=== PATIENT | female | born 1955 | race Caucasian/White ===

== ENCOUNTER → 2017-01-23 | Outpatient (CLI) | payer BC | LOC: RAD 11:20 | DX: Z12.31 Encounter for screening mammogram for malignant neoplasm of breast (principal) ==

== ENCOUNTER → 2017-01-30 | Outpatient (CLI) | payer BC | LOC: RAD 01-25 15:37 | DX: N63 Unspecified lump in breast (principal) ==

== ENCOUNTER → 2017-02-02 | Outpatient (CLI) | payer BC ==
--- NOTE | ~2017-02-02 | S ---
[facility] [place] [address] SURGICAL PATH RPT PROCEDURE Name: VAMSI ROMERO YULIA Room #: [facility] M.Cynthia.#: [id number] Admission: 02/02/17 Date of : 57 Discharge: Report #: [id number] Path Case #: [id number] PATHOLOGY REPORT COLLECTION DATE: 02/02/2017 RECEIVED DATE: 02/02/2017 SUBMITTING PHYS: Dr. Prabhu Jiménez OTHER PHYS: Dr. Kristel Tinoco SPECIMEN(S) RECEIVED: A.Right breast 10:00, 8 cm FN B.Right axilla * * * * * * * * * * * * FINAL DIAGNOSIS: A. "Right breast 10:00, 8 cm FN", image-guided needle biopsy: - Invasive ductal carcinoma, poorly-differentiated, Grade III, involving multiple cores, longest contiguous focus measuring 0.6 cm on the slide (see comment). B. "Right axilla", image-guided needle biopsy: - Lymph node with metastatic carcinoma, involving multiple cores, measuring at least 0.2 cm on the slide. COMMENT: Specimen type: Image-guided needle biopsy Tumor site: Right breast, 10:00, 8.0 cm FN Tumor quantitation: Involving multiple cores, longest contiguous focus measuring 0.6 cm on the slide Histologic type: Invasive ductal carcinoma Histologic grade: Grade III, poorly-differentiated Tubules, nuclei and mitoses: Tubule score - 3, nuclei score - 3, mitoses score - 3 LVSI: Indeterminate Microcalcifications: Not identified Markers: ER, GA, HER2 and Ki-67 Block: Pending on block A1. The case was co-reviewed with Dr. Kell Richard. The case was discussed with Lonnie in the [facility] on 02/05/17 at 3:10 PM. (CLW:marcello; 02/05/2017) PATHOLOGIST: Argentina Yi M.D. REPORT ELECTRONICALLY SIGNED BY: Argentina Yi M.D. DATE/TIME: 02/05/2017 22:43 * * * * * * * * * * * * [address] [address] SURGICAL PATH RPT PROCEDURE Name: VAMSI ROMERO YULIA Room #: [facility].#: [id number] Admission: 02/02/17 Date of : 57 Discharge: Report #: [id number] Path Case #: [id number] GROSS PATHOLOGY: A. Received in formalin labeled "Vamsi Romero, right breast 10:00, 8 cm," are multiple needle cores of yellow-oakes fibrofatty tissue measuring 2.3 x 1.3 x 0.3 cm in aggregate dimensions. The tissue is submitted in its entirety in cassette A1. The cold ischemic time is 5 minutes. The total formalin fixation time is 10 hours and 40 minutes. B. Received in formalin labeled "Vamsi Romero, right axilla," are three distinct needle cores of orlando soft tissue ranging from 1.2 to 1.4 cm in length, which are submitted entirely in cassette B1. (DAC; 02/02/2017) CLINICAL HISTORY: A. Right nodule B. Enlarged node INITIAL CPT CODE(S): A; 95270, 72168(4) B; 07359 Professional services performed by [facility] at [facility] [address], [place] [address] Technical services performed by [facility] at [address] [place] [address], [address], [place] [address]. PROCEDURE REPORT (Order Date: 02/07/2017 13:06) COMMENT: Quantitative image analysis was performed on block A1. Please see next page for scanned image of results. (AMJ 02/08/2017) PATHOLOGIST: Tung Hook M.D. REPORT ELECTRONICALLY SIGNED BY: Tung Hook M.D. DATE/TIME: 02/08/2017 11:[address] [facility] [address] [place] [address] PHONE: [phone] DIRECTOR: Nicholas Wood M.D. * * * END OF REPORT * * *
== END ==
LOC: ULTRA 09:52
DX: C50.911 Malignant neoplasm of unspecified site of right female breast (principal); C96.9 Malignant neoplasm of lymphoid, hematopoietic and related tissue, unspecified

== ENCOUNTER → 2017-02-23 | Outpatient (CLI) | payer BC | LOC: LABMALL 08:53 → MRI 14:14 | DX: C50.919 Malignant neoplasm of unspecified site of unspecified female breast (principal) ==

== ENCOUNTER → 2017-05-11 | Outpatient (CLI) | payer BC | LOC: RAD 14:01 | DX: C50.911 Malignant neoplasm of unspecified site of right female breast (principal) ==

== ENCOUNTER → 2017-07-10 | Outpatient (CLI) | payer BC ==
[~2017-07-10] MED LIST: AMBIEN CR12.5 MG PO; BIOTIN1 MG PO; NAPROSYN500 MG PO; PRENATAL VITAM1 EAC7 PO; TEMOVATE15 GM VAG; WELLBUTRIN XL300 MG PO; XANAX 0.5 MG0.5 MG PO; ZOLPIDEM TARTRA10 MG PO
== END ==
LOC: MRI 13:35
DX: C50.911 Malignant neoplasm of unspecified site of right female breast (principal)

== ENCOUNTER 2017-08-29 05:15 | Observation (INO) | payer BC ==
[~2017-08-29] VITALS: Ht 170.2 cm; Wt 122.5 kg
--- NOTE | ~2017-08-29 | O ---
[facility] [place] [address] OPERATIVE REPORT Name: VAMSI CARRION Room #: 447-P [facility] M.R.#: [id number] Admission: 08/29/17 Attend Phys: Clinton Torrez MD Discharge: 08/30/17 Date of : 57 Report #: [id number] THIS REPORT FOR: //name// CC: [facility] physician/PCP POLINA Hernandez MD DATE OF SERVICE: 08/29/2017 PREOPERATIVE DIAGNOSES: Carcinoma, right breast with metastatic axillary node, status post completion of neoadjuvant chemotherapy plus BRCA mutation. POSTOPERATIVE DIAGNOSES: Carcinoma, right breast with metastatic axillary node, status post completion of neoadjuvant chemotherapy plus BRCA mutation. POSTOPERATIVE DIAGNOSES: Carcinoma, right breast with metastatic axillary node, status post completion of neoadjuvant chemotherapy plus BRCA mutation. OPERATION: 1. Right modified radical mastectomy. 2. Left total mastectomy. 3. Removal of Port-A-Cath. SURGEON: Clinton Torrez MD ASSISTANTS: 1. Charles Oleary MS3 2. Palmer Lujan MS3 ANESTHESIA: General. HISTORY OF PRESENT ILLNESS: The patient was taken to the operating room and placed in a supine position for the general endotracheal anesthesia. The abdomen, the chest, both breasts and both axillary regions and the neck were widely prepped with ChloraPrep solution. Sterile drapes were applied. The patient had known carcinoma of the right breast with metastatic right axillary lymph node, which had responded nicely radiographically to the neoadjuvant chemotherapy. She also has a BRCA2 mutation which puts her at high risk for cancer on the left, so she has decided to have bilateral mastectomies. The patient was extremely large with large breasts and redundant skin folds, which made the operation more difficult. A right transverse slightly oblique incision was made in order to encompass the right breast. The skin flaps were developed [address] [address] OPERATIVE REPORT Name: VAMSI CARRION Room #: 447-P [facility] Tameka Hicks#: [id number] Admission: 08/29/17 Attend Phys: Clinton oTrrez MD Discharge: 08/30/17 Date of : 57 Report #: [id number] using electrocautery. The axilla was entered with care being taken to avoid injury to the neurovascular structures. A right modified radical mastectomy was performed, removing the entire breast together with the underlying pectoralis fascia and level 1 and level 2 axillary nodes. At the top of the dissection, I found a somewhat indurated axillary node in level 3. So I extended the dissection to include that lymph node which was marked separately as the highest axillary node. The bulky lymphadenopathy noted prechemotherapy had resolved nicely, but this was a somewhat indurated lymph node which was resected en bloc with the specimen. The breast was given directly to the pathologist with the en bloc lymph node dissection attached. Hemostasis was carefully obtained. The axillary vein, axillary artery, brachial plexus structures, long thoracic nerve, thoracodorsal nerve, artery and vein and intercostal brachial cutaneous nerve were all identified and protected from harm. We utilized Harmonic scalpel to control the blood and lymphatic supply to the resected axillary tissues. The wound was irrigated with saline. The sponge, instrument and needle counts were reported as correct. Hemostasis was again checked and was found to be excellent. Two 19-[place]ri [place]ankan round suction catheters were left under the skin flaps and these were brought out through separate stab wounds. The incision was closed in layers using interrupted 3-0 Vicryl for the subcutaneous layer and running 4-0 PDS for the subcuticular layer. Next, using new instruments and gloves, a similar incision was made on the left side for a left total mastectomy. A similar dissection was performed and the breast was removed together with the underlying pectoralis fascia and the attached axillary tail. The specimen was marked with sutures for orientation purposes and then was given to pathology. Care was taken to avoid injury to the neurovascular structures in the axilla. Palpation of the axilla revealed no suspicious lymph nodes. Hemostasis was obtained and the incision was irrigated with saline. The sponge, instrument and needle counts were reported as correct. The dissection plane was carried more superiorly to the Port-A-Cath, which was on the left upper chest wall. The Port-A-Cath was removed without difficulty and the venous tunnel was closed using 3-0 Vicryl. The Port-A-Cath and the attached catheter were submitted to pathology. Two 19-[place]ankan round suction catheters were left under the skin flaps and these were brought out through separate stab wounds. The incision was closed just as dictated for the right side; however, during the closure, we noted that there was more redundancy of the skin than I wanted, so I elected to remove some additional left chest wall skin in order to make the incision more cosmetic. These were submitted separately. Sterile dressings were applied and the patient was taken to recovery in satisfactory condition. Estimated blood loss was less than 100 mL. <ELECTRONICALLY SIGNED> By: Clinton Torrze MD 11/12/17 1534 1047 1113 Clinton Torrez MD /nt
--- NOTE | ~2017-08-29 | EKG ---
[address] [address] ELECTROCARDIOGRAM REPORT Name: VAMSI CARRION Room #: 447-P [facility]#: [id number] Admission: 08/29/17 Attend Phys: Clinton Torrez MD Discharge: Date of : 57 Report #: [id number] THIS REPORT FOR: //name// [facility] Test Date: 2017-08-29 Test Time: 06:34:00 Pat Name: VAMSI CARRION Department: Room: [facility] Gender: F Youth Services Specialist: NIRMALA : 1955 Requested By: Clinton Torrez Order Number: [id number] MD: John Dwyer Measurements Intervals [place] Rate: 102 P: 53 VA: 152 QRS: 8 QRSD: 91 T: 31 QT: 374 QTc: 488 Interpretive Statements Sinus tachycardia Borderline prolonged QT interval No previous ECG available for comparison Electronically Signed On 08-29-2017 15:02:43 CDT by John Dwyer [email or web address] <ELECTRONICALLY SIGNED> By: John Dwyer MD, [facility] 08/29/17 1502 0634 0634 John Dwyer MD, FACC /EPI
--- NOTE | ~2017-08-29 | S ---
[facility] [place] [address] SURGICAL PATH RPT PROCEDURE Name: VAMSI ROMERO Room #: 447-P [facility] Tameka MEladio#: [id number] Admission: 08/29/17 Date of : 57 Discharge: 08/30/17 Report #: [id number] Path Case #: [id number] PATHOLOGY REPORT COLLECTION DATE: 08/29/2017 RECEIVED DATE: 08/29/2017 SUBMITTING PHYS: Dr. Clinton Torrez OTHER PHYS: Dr. Kristel Hernandez SPECIMEN(S) RECEIVED: A.Right breast and axillary lymph node dissection, long suture rios highest axillary node B.Left breast, long suture rios tail of sanchez C.Additonal left chest wall skin D.Port a Cath * * * * * * * * * * * * FINAL DIAGNOSIS: A. Breast, right breast, mastectomy and axillary lymph node dissection: - No residual invasive carcinoma present, ypT0 (please see comment). - Margins of resection widely free of malignancy; closest inferior margin 3.4 cm away from the biopsy site. - Skin and nipple with no diagnostic abnormalities. - 13 lymph nodes showing reactive changes; one lymph node with extensive scarring and fibrous tissue (0/13). B. Breast, left breast, mastectomy: - Benign breast tissue with nonproliferative fibrocystic changes. - Negative for hyperplasia, atypia or malignancy. - Skin and nipple with reactive changes. C. Skin, additional left chest wall skin, excision: - Reactive changes; negative for malignancy. Sydney Port-A-Cath, removal: - 2.5 cm port attached to 26 cm plastic tubing material, (gross exam only). (IUV:timo; 09/03/2017) [facility] STAGING REPORT CLINICAL Clinical History: Prior presurgical (neoadjuvant) therapy for this diagnosis of invasive carcinoma [address] [address] SURGICAL PATH RPT PROCEDURE Name: VAMSI ROMERO Room #: 447-P [facility] Hicks#: [id number] Admission: 08/29/17 Date of : 57 Discharge: 08/30/17 Report #: [id number] Path Case #: [id number] SPECIMEN Procedure: Total mastectomy (including nipple and skin) Lymph Node Sampling: Axillary dissection (partial or complete dissection) Specimen Laterality: Right TUMOR Specify Clock Position of Tumor Site: 10 o'clock Presence of Invasive Carcinoma: No residual invasive carcinoma Ductal Carcinoma In Situ (DCIS): No DCIS is present Tumor Size / Focality: No residual invasive carcinoma Accessory Tumor Findings Treatment Effect: Response to Presurgical (Neoadjuvant) Therapy: In the Breast: No residual invasive carcinoma is present in the breast after presurgical therapy In the Lymph Nodes: No lymph node metastases. Fibrous scarring, possibly related to prior lymph node metastases with pathologic complete response MARGINS Invasive Carcinoma: Margins uninvolved by invasive carcinoma Distance from Closest Margin: Distance is > 10 mm Closest Uninvolved Margin: Inferior Ductal Carcinoma In Situ (DCIS): DCIS not present in specimen LYMPH NODES Regional Lymph Nodes: [place] lymph node biopsy performed Number of [place] Nodes Examined: Specify number: 0 Number of Lymph Node(s) Examined (sentinel and nonsentinel): Specify number: 13 STAGE (PTNM) TNM Descriptors: y (post-treatment) Primary Tumor (Invasive Carcinoma) (pT): pT0: No evidence of primary tumor # Category (pN): pN0: No regional lymph node metastasis identified histologically COMMENT The prognostic markers were performed on [id number]. Please refere to the biopsy report for details. COMMENT: AE1/AE3 immunohistochemical stain performed on block A4-negative. PATHOLOGIST: Kell Richard M.D. REPORT ELECTRONICALLY SIGNED BY: Kell Richard M.D. DATE/TIME: 09/03/2017 14:[address] [address] SURGICAL PATH RPT PROCEDURE Name: VAMSI ROMERO Room #: 447-P [facility] Hicks#: [id number] Admission: 08/29/17 Date of : 57 Discharge: 08/30/17 Report #: [id number] Path Case #: [id number] * * * * * * * * * * * * GROSS PATHOLOGY: A. The specimen is received in formalin, labeled "Vamsi Romero, right breast and axillary node dissection, long suture rios highest axillary node," and consists of a modified radical mastectomy. The breast tissue measures 29.0 cm S-I, 28 cm M-L, and 6.0 cm A-P. The unremarkable skin ellipse measures 23.4 x 15.6 cm with an everted nipple measuring 4.5 x 2.8 cm. The axillary contents measure 15.3 x 13.4 x 3.9 cm. The specimen weighs 2950 grams and is inked as follows: anterior-superior blue, posterior black, and inferior green. It is serially sectioned into 11 slices revealing an area of dense and possibly scarred fibrous tissue in the upper outer quadrant (10:00) that measures 6.5 cm L-M, 4.8 cm S-I, and 2.3 cm A-P. Further sectioning through this area reveals no clip or previous biopsy site. The distances to margins are as follows: 3.5 cm anterior skin, 4.4 cm posterior, 11.0 cm superior, 3.4 cm inferior, and 10 cm or greater lateral-medial. The remaining breast parenchyma consists of yellow-orange lobulated tissue with scattered breast stroma (approximately 10%). The tail of laura is bisected and palpated to reveal multiple lymph node candidates ranging from 0.2 cm to 2.8 cm. The specimen was removed on 08/29/17 at 9:12 AM and placed in formalin at 9:18 AM. The cold ischemic time is 6 minutes. Total formalin fixation time is greater than 6 hours and less than 72 hours. Medical Sales Representative sections are submitted as follows: A1: Nipple A2: Superior and inferior skin margins A3-A8: Entire scarred area A9: Upper outer quadrant A10: Lower outer quadrant A11: Lower inner quadrant A12: Upper inner quadrant A13-A17: Largest lymph node serially sectioned A18: One lymph node serially sectioned A19-A20: One lymph node serially sectioned A21: One lymph node serially sectioned A22-A25: Bisected lymph nodes (one node per cassette) A26: Remaining lymph nodes, intact B. The specimen is received in formalin, labeled "Vamsi Romero, left breast, long suture rios tail of sanchez," and consists of a simple mastectomy specimen with breast tissue measuring 27.2 cm S-I, 25.0 cm L-M, and 6.0 cm A-P. The anterior skin ellipse measures 22.1 x 14.1 cm and has an everted nipple measuring 4.5 x 2.5 cm. A suture is present designating the "tail of Sanchez". The specimen weighs 2105 grams and is inked as follows: Anterior superior-blue, deep posterior-black, and inferior-green. It is serial sectioned from [address] [address] SURGICAL PATH RPT PROCEDURE Name: VAMSI ROMERO Room #: 447-P [facility] M.RGeetha#: [id number] Admission: 08/29/17 Date of : 57 Discharge: 08/30/17 Report #: [id number] Path Case #: [id number] medial to lateral into 11 slices to reveal yellow-orange lobulated breast parenchyma with approximately 10-15% breast stroma. No mass lesions are grossly identified. The specimen is removed on 08/29/17 at 9:56 AM and placed in formalin at 10:02 AM. The cold ischemic time is 6 minutes. Total formalin fixation time is greater than 6 hours and less than 72 hours. Medical Sales Representative sections submitted as follows: A1: Nipple A2: Superior and inferior skin A3: Upper outer quadrant A4: Lower outer quadrant A5: Upper inner quadrant A6: Lower inner quadrant A7: Central breast parenchyma deep to nipple C. The specimen is received in formalin, labeled "Vamsi Romero, additional left chest wall skin," and consists of 2 elongated segments of [place] skin with underlying yellow-orange fibroadipose tissue measuring 19.5 x 2.2 x 1.3 cm and 18.0 x 2.2 x 1.5 cm. The skin is unremarkable and the underlying tissue is sectioned to reveal no masses or lesions. Medical Sales Representative sections are submitted in C1. D. The specimen is received in formalin, labeled "Vamsi Romero, Port-A-Cath," and consists of a pyramidal medical appointment scheduler measuring 2.5 x 2.3 x 1.4 cm with a white plastic tube protruding from one side measuring 26.0 cm in length and 0.3 cm in diameter. Gross photos are taken. (SDY; 08/30/2017) CLINICAL HISTORY: Carcinoma right breast with metastatic axillary lymph node Completion of neoadjuvant chemotherapy INITIAL CPT CODE(S): A; 79489, 75916 B; 57757 C; 87151 D; 90276 Professional services performed by [facility] at [facility] [address] [facility], [place] [address] Technical services performed by [facility] at [address] [place] [address], [address], [place] [address]. CC: Dr. Qasim Marte Ma [facility] [address] [place] [address] SURGICAL PATH RPT PROCEDURE Name: VAMSI ROMERO Room #: 447-P [facility] Hicks#: [id number] Admission: 08/29/17 Date of : 57 Discharge: 08/30/17 Report #: [id number] Path Case #: [id number] [place] [address] PHONE: [phone] DIRECTOR: Nicholas Wood M.D. * * * END OF REPORT * * *
[2017-08-29 06:45] VITALS: BP 156/85
[2017-08-29 06:54] LABS: HEMOGLOBIN 12.1 gm/dL (12.0-15.0); MCH 35.4 pg (26.0-34.0); MCHC 33.7 g/dL (28.0-37.0); MCV 105.3 fL (80.0-100.0); RBC 3.42 mil/uL (4.20-5.00); RDW 15.7 % (10.5-14.5); WBC 8.2 thou/uL (4.0-11.0)
[2017-08-29 07:04] LABS: CALCIUM 9.4 mg/dL (8.5-10.1)
[2017-08-29 07:10] LABS: ALBUMIN 3.5 g/dL (3.4-5.0); TOTAL BILIRUBIN 0.3 mg/dL (<0.1-1.0); TOTAL PROTEIN 7.5 g/dL (6.4-8.2)
[2017-08-29 14:55] VITALS: BP 114/60
[2017-08-29 19:55] VITALS: BP 129/82
[2017-08-30 05:00] VITALS: BP 128/64
[2017-08-30 09:00] VITALS: BP 151/87
[2017-08-30 12:28] VITALS: BP 151/87
[2017-08-30 12:29] VITALS: BP 151/87
== END 2017-08-30 13:16 | disposition home or self-care (01) ==
LOC: OR 05:15 → TBA 05:15 → OR 10:56 → 4S 10:56 → OR 14:09 → ENTRNSPT 08-30 12:41 → EDTRNSPTSTS 08-30 12:48 → 4S 08-30 13:16
PROVIDERS: Specialist
DX: C50.911 Malignant neoplasm of unspecified site of right female breast (principal); C77.3 Secondary and unspecified malignant neoplasm of axilla and upper limb lymph nodes; G47.30 Sleep apnea, unspecified; F41.9 Anxiety disorder, unspecified; Z92.21 Personal history of antineoplastic chemotherapy; F17.210 Nicotine dependence, cigarettes, uncomplicated; Z99.89 Dependence on other enabling machines and devices
CPT/HCPCS: 50010; 50101; 50331; 50386; 50403; 52190; 56524; 56526; 56805; 62110; 62900; 70005